=== PATIENT | female | born 1975 | race Hispanic/Latino ===

== ENCOUNTER 2018-03-10 11:32 | Emergency (ER) | payer OTHER ==
[~2018-03-10] VITALS: Ht 152.4 cm; Wt 79.8 kg
--- OUTSIDE RECORDS SUMMARY | 2018-03-10 11:35 | XMS REPORT | Summary of Care ---
Author Author [facility] Organization [facility] Address Unknown Phone Unavailable Encounter CHAPITO Baires(MARCO) [id number] Date(s): 09/13/15 - 09/13/15 [facility] [address] [place], [place] [id number] [place] [address] [phone] Discharge Disposition: Home Attending Physician: Garett Lyman MD Vital Signs No data available for this section Problem List Condition Effective Dates Status Health Status Informant Hyperglycemia, Active unspecified(Confirme d) Obesity(Confirmed) Active Allergies, Adverse Reactions, Alerts Substance Reaction Severity Status contrast media Active (iodine-based) NKDA Active traMADol contrast media (iodine-based) Active Medications No data available for this section Results No data available for this section Immunizations Vaccine Date Refusal Reason tetanus-diphtheria toxoids 11/12/09 Procedures Procedure Date Related Diagnosis Body Site Tubal ligation Social History Social History Type Response Alcohol Current, Type Beer, Liquor. Frequency: 1-2 times per month. Smoking Status Never smoker; Exposure to Tobacco Smoke None; Cigarette Smoking Last 365 Days No; Reg Smoking Cessation Counseling No1 1Patient stopped smoking about 3 months ago. Assessment and Plan No data available for this section
--- OUTSIDE RECORDS SUMMARY | 2018-03-10 11:35 | XMS REPORT | Continuity of Care Document ---
Author Author [facility] Interface Address Unknown Phone Unavailable Problems Problem Status Onset Date Classification Date Reported Comments Source N64.59 - OTHER SIGNS AND SYMPTOMS IN BR Active 09/20/2015 [facility] [place] Z12.31 - ENCNTR SCREEN MAMMOGRAM FOR [place] Active 07/19/2015 [facility] Hyperglycemia, unspecified Active Problem 09/16/2015 [facility] Obesity Active Problem 09/16/2015 [facility] Medications Medication Details Route Status Patient Instructions Ordering Provider Order Date Source Allergies, Adverse Reactions, Alerts Substance Category Reaction Severity Reaction type Status Date Reported Comments Source contrast media (iodine-based) Assertion Drug allergy Active [facility] traMADol Assertion contrast media (iodine-based) Drug allergy Active [facility] Immunizations Immunization Date Given Site Status Last Updated Comments Source tetanus-diphtheria toxoids 11/12/2009 Left deltoid completed Earl [facility] Results Order Name Results Value Reference Range Date Interpretation Comments Source Digital Mammo Screening [place] Digital Mammo Screening [place] - DIGITAL MAMMO SCREENING [place] BILATERAL [facility] DIGITAL SCREENING MAMMOGRAM WITH CAD: 09/13/2015 CLINICAL: Routine. Current study was evaluated with a Computer Aided Detection (CAD) system. No prior exams were available for comparison. The tissue of both breasts is heterogeneously dense, which could obscure detection of small masses. No significant masses, calcifications, or other findings are seen in either breast. IMPRESSION: NEGATIVE There is no mammographic evidence of malignancy. A 1 year screening mammogram is recommended. Mica amaro/penrad:09/14/2015 08:27:57 Electric Locomotive Firer/Fireman: Barbara MACHADO)([place]), [facility] This exam was dictated and interpreted by [id number] at [facility]. letter sent: Normal [place] Mammogram BI-RADS: 1 Negative 09/13/2015 - - Read by: Mica Howell MD Dictated Date/time: 09/14/15 08:27 Electronically Signed by: Mica Howell MD 09/14/15 08:27 FINAL REPORT OP[facility] Villalobosa Vital Signs Vital Sign Value Date Comments Source Encounters Location Location Details Encounter Type Encounter Number Reason For Visit Attending Provider ADM Date DC Date Status Source Outpatient [id number] JOEY PATEL 03/30/2015 Active [facility] Outpatient [id number] CHARITO PEREZ 07/19/2015 Active [facility] [place] [facility] [id number] Garett Lyman 09/13/2015 09/14/2015 [facility] Outpatient [id number] JOEY PATEL 11/22/2015 Active [facility] Outpatient [id number] JOEY PATEL 12/06/2015 Active [facility] Outpatient [id number] JOEY PATEL 04/10/2016 Active [facility] Outpatient [id number] JOEY PATEL 05/26/2016 Active [facility] Procedures Procedure Code Date Perfomer Comments Source Tubal ligation [id number] JAKY [place]
[2018-03-10 12:08] VITALS: BP 136/84
[2018-03-10] MEDS ORDERED: KETOROLAC TROMETHAMINE 60 MG/2 ML VIAL IM ONE (12:15)
== END 2018-03-10 12:21 | disposition home or self-care (01) ==
LOC: FSED 11:32
DX: M54.2 Cervicalgia (principal); S16.1XXA Strain of muscle, fascia and tendon at neck level, initial encounter; J02.9 Acute pharyngitis, unspecified; F17.210 Nicotine dependence, cigarettes, uncomplicated
CPT/HCPCS: 99282; J1885

== ENCOUNTER 2018-05-27 08:04 | Observation (INO) | payer OTHER ==
[2018-05-25 13:44] LABS: BASOPHILS % 0.2 % (0.0-1.0); EOSINOPHILS # (AUTO) 0.1 (0.0-0.4); EOSINOPHILS % 1.2 % (0.0-6.0); HEMATOCRIT 41.1 % (34.2-44.1); HEMOGLOBIN 13.8 g/dL (12.0-16.0); LYMPHOCYTES # (AUTO) 1.6 (1.0-3.2); LYMPHOCYTES % 28.6 % (18.0-39.1); MEAN CORPUSCULAR HEMOGLOBIN 33.4 pg (28-32); MEAN CORPUSCULAR HGB CONC 33.6 g/dL (31-35); MEAN CORPUSCULAR VOLUME 99.5 fL (81-99); MONOCYTES # (AUTO) 0.5 (0.2-0.8); NEUTROPHILS # (AUTO) 3.5 (2.1-6.9); NEUTROPHILS % 61.7 % (38.7-80.0); PLATELET COUNT 241 x10e3/uL (140-360); RED BLOOD COUNT 4.13 x10e6/uL (3.6-5.1); RED CELL DISTRIBUTION WIDTH 13.1 % (11.7-14.4)
[2018-05-25 13:55] LABS: INR 0.82; PROTHROMBIN TIME 12.1 seconds (11.9-14.5)
[2018-05-25 13:56] LABS: PARTIAL THROMBOPLASTIN TIME 28.8 seconds (23.8-35.5)
[2018-05-25 14:00] LABS: ANION GAP 13.7 mmol/L (8-16); BLOOD UREA NITROGEN 10 mg/dL (7-26); BUN/CREATININE RATIO 16 (6-25); CALCIUM 8.9 mg/dL (8.4-10.2); CARBON DIOXIDE 24 mmol/L (22-29); CHLORIDE 101 mmol/L (98-107); CREATININE, SERUM 0.63 mg/dL (0.57-1.11); EST GLOMERULAR FILTRATION RATE > 60 ML/MIN (60-); GLUCOSE 104 mg/dL (74-118); POTASSIUM 3.7 mmol/L (3.5-5.1); SODIUM 135 mmol/L (136-145)
--- NOTE | 2018-05-25 14:10 | Diagnostic Imaging Report ---
EXAMINATION: CHEST 2 VIEWS INDICATION: Pre-op COMPARISON: None FINDINGS: TUBES and LINES: None. LUNGS: Lungs are well inflated. Lungs are clear. There is no evidence of pneumonia or pulmonary edema. PLEURA: No pleural effusion or pneumothorax. HEART AND MEDIASTINUM: The cardiomediastinal silhouette is unremarkable. BONES AND SOFT TISSUES: No acute osseous lesion. Soft tissues are unremarkable. UPPER ABDOMEN: No free air under the diaphragm. IMPRESSION: No acute radiographic abnormality. Signed by: Dr. Tosha Lal MD on 05/25/2018 2:07 PM
--- NOTE | 2018-05-25 14:42 | NUR ---
CASE MANAGEMENT INITIAL ASSESSMENT Section Hand to bedside to discuss plan of care with patient/family. CM/SW role and care transitions discussed. Anticipated discharge plan discussed along with duration of care. CM discussed patients right to make decisions in care. CM/SW work hours given. Patient lives: PATIENT LIVES WITH IN [address] [place] [address] Admit/Transfer: OR POA/Emergency contact: - FRANCIA MONTGOMERY [phone] Current/Previous Home Health: NONE AT THIS TIME PCP/Follow-up Care: PATIENT DOES NOT HAVE ONE BUT HIGHLY ENCOURAGED TO FIND ONE WHILE HERE AND SET UP APPOINTMENT PRIOR TO DISCHARGE. Current/Previous DME: NONE Other Services: NONE Employment Status: EMPLOYED Areas of Concerns: NONE AT THIS TIME Referral Needs: NONE Education Needs: NOT AT THIS TIME IMM/DORANTES given and signed (if applicable): IMM Goal for discharge: DISCHARGE TO [facility] CM left business card at the bedside with contact information. Name and number was also written on the patients whiteboard. Patient verbalized understanding of discussion. CM will follow-up with ongoing discharge and transition of care needs.
[~2018-05-27] VITALS: Ht 152.4 cm; Wt 87.3 kg
[~2018-05-27 08:04] MED LIST: ACETAMINOPHEN 1000 MG/100 ML 100 ML IV ONE; CYCLOBENZAPRINE10 MG PO; LIDOCAINE HCL (LTA) 4 ML SOLN ONE; NORCO 5-325 TA1 EACH PO; PIROXICAM10 MG PO
--- OUTSIDE RECORDS SUMMARY | 2018-05-27 08:07 | XMS REPORT ---
Author [facility] Address Unknown Phone Unavailable Care Team Providers Care Education Program Specialist Name Role Phone DINESH ODOM Unavailable Unavailable Problems This patient has no known problems. Allergies, Adverse Reactions, Alerts This patient has no known allergies or adverse reactions. Medications This patient has no known medications. Results Test Description Test Time Test Comments Text Results Atomic Results Result Comments CHEST 2 VIEWS 2018-05-25 14:06:00 [place] [address] Patient Name: FRANKI ESPINAL MR #: [id number] : 1975 Age/Sex: 42/F Req #: [id number] Adm Physician: Ordered by: DINESH ODOM MD Report #: [id number] Location: OR Room/Bed: Procedure: [id number] DX/CHEST 2 VIEWS Exam Date: 05/25/18 Exam Time: 1250 REPORT STATUS: Signed EXAMINATION: CHEST 2 VIEWS INDICATION: Pre-op COMPARISON: None FINDINGS: TUBES and LINES: None. LUNGS: Lungs are well inflated. Lungs are clear. There is no evidence of pneumonia or pulmonary edema. PLEURA: No pleural effusion or pneumothorax. HEART AND MEDIASTINUM: The cardiomediastinal silhouette is unremarkable. BONES AND SOFT TISSUES: No acute osseous lesion. Soft tissues are unrem arkable. UPPER ABDOMEN: No free air under the diaphragm. IMPRESSION: No acute radiographic abnormality. Signed by: Dr. Kathy Paulson MD on 05/25/2018 2:07 PM Dictated By: KATHY PAULSON MD 06 Transcribed By: ELISABETH on 05/25/181406 COPY TO: DINESH ODOM MD
[2018-05-27] MEDS ORDERED: GELATIN SPONGE 12-7MM ONE (08:18)
[2018-05-27] MEDS ORDERED: BUPIVACAINE 0.5%/EPI 30 ML SDV INJ ONE (08:18)
[2018-05-27] MEDS ORDERED: THROMBIN FOR SOLN 5,000 UNIT VIAL ONE (08:18)
[2018-05-27] MEDS ORDERED: BACITRACIN 50,000 UNIT VIAL ONE (08:19)
[2018-05-27] MEDS ORDERED: CEFAZOLIN SOD 2 GM/D5W 50ML 50 ML IV ONE (08:36)
[2018-05-27] MEDS ORDERED: BUPIVACAINE HCL 0.5% 10ML MPF VIAL INJ ONE (10:41)
[2018-05-27] MEDS ORDERED: PROMETHAZINE HCL (IM) 25 MG/ML VIAL IM PRN (11:30)
[2018-05-27] MEDS ORDERED: ONDANSETRON HCL INJ 2MG/ML 2ML 2 MG/ML VIAL IV PRN (11:30)
[2018-05-27] MEDS ORDERED: ACETAMINOPHEN 325 MG TAB PO PRN (11:30)
[2018-05-27] MEDS ORDERED: MORPHINE SULFATE 5 MG/ML VIAL IM PRN (11:30)
[2018-05-27] MEDS ORDERED: MAGNESIUM/ALUMINUM/SIMETHICONE 30 ML UDC PO PRN (11:30)
[2018-05-27] MEDS ORDERED: CARISOPRODOL 350 MG TAB PO PRN (11:30)
[2018-05-27] MEDS ORDERED: FENTANYL CITRATE/PF 100MCG/2 ML INJ ONE ×2 (11:41→19:23)
[2018-05-27] MEDS ORDERED: KETOROLAC TROMETHAMINE 30 MG/ML VIAL ONE (12:03)
[2018-05-27] MEDS ORDERED: HYDROMORPHONE 2MG/ML 2 MG/ML ML ONE (12:15)
--- NOTE | 2018-05-27 13:31 | Operative Report ---
DATE OF PROCEDURE: May 27, 2018 PREOPERATIVE DIAGNOSES: 1. 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 2. Right carpal tunnel syndrome. POSTOPERATIVE DIAGNOSES: 1. 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 1. Right carpal tunnel syndrome. PROCEDURES: 1. C5-6 anterior cervical diskectomy and microsurgical osteophyte resection and allograft fusion, 03784. 2. Preparation of [employer] cortical cancellous allograft, 57096. 3. C5-6 anterior cervical plating with Synthes Zero-Profile Natural plate, 87119. 4. Right carpal tunnel release. ANESTHESIA: General. INDICATIONS: The patient is a 42-year-old woman who presents with a right C6 radiculopathy superimposed on right carpal tunnel syndrome and was taken to the operating room for simultaneous anterior cervical decompression and fusion and right carpal tunnel release. PROCEDURE: After the induction of general anesthesia, the patient was placed on the operating table in supine position and the fluoroscopic C-arm was positioned in cross-table lateral orientation. The right side of the neck was prepped and draped in sterile fashion. A small transverse incision was created overlying a skin crease superimposed on the C5-6 disk space as determined with bilateral fluoroscopy. The platysma was divided in line with the incision. A subplatysmal dissection was carried out. An avascular plane of dissection was developed medial to the sternocleidomastoid muscle and was followed medial to the carotid sheath to the anterior border of the cervical spine. The deep cervical fascia was opened. The esophagus was retracted to left. The attachments of longus coli muscles to the anterior lateral aspects of vertebral bodies of C5 and C6 were divided. The anterior longitudinal ligament was resected. [place] posts were inserted into C5 and C6, and the [place] distractor was used to distract the disk space. The anterior annulus of the disk was incised with a number 11 blade, and the contents of the disks were thoroughly evacuated with angled curets and pituitary rongeurs. The posterior osteophytes were drilled with a 2 mm cutting bur on a high-speed drill until they were completely removed. The posterior annulus of the disks, herniated disk material, and the posterior longitudinal ligament were resected layer by layer until the dura was fully exposed and decompressed. The medial aspects of the uncinate processes were resected bilaterally to further expose and decompress the origins of the corresponding nerve roots. After satisfactory decompression had been achieved, the endplates were prepared for fusion. The disk space was sized and found to be 8 mm in height. A piece of MTF cortical cancellous allograft measuring 8 mm in thickness was selected and loaded onto a Synthes ZPN plate. The construct was inserted into the C5-6 disk space under distraction and fluoroscopic guidance. The distraction was released, and the distraction posts were removed. The plate was then screwed to the endplates of C5 and C6 with 2 pairs of 14 mm screws. All screws were locked, and excellent construct was obtained. The wound was copiously irrigated with Bacitracin solution. Meticulous hemostasis was secured. The retractor was removed. The platysma was closed with 3-0 Vicryl sutures. The skin was closed with 4-0 Monocryl sutures in subcuticular fashion. Steri-Strips and a dressing were applied. The drapes were removed. The right arm was abducted over a hand table. The right hand, wrist and forearm were prepped and draped circumferentially in sterile fashion. A tourniquet was inflated over the upper arm to 250 mmHg. A small midline incision was created over the median palmar crease of the hand just distal to the distal flexor crease of the wrist. The subcutaneous fat was divided, and transverse carpal ligament was identified and incised with a number 15C blade until the underlying median nerve came into view. As the instructional assistant retracted the skin edges, the transverse carpal ligament was divided proximally and distally until the full length of the ligament had been divided and the full length of median nerve was exposed and decompressed within the carpal tunnel. The point of maximum compression on the nerve appeared to be 2.5 cm distal to the distal flexor crease of the wrist where the ligament was at its thickest. More distally, the recurrent motor branch of the nerve was preserved within its fat pad. The wound was copiously irrigated with Bacitracin solution. The subcutaneous layer was closed with a 3-0 Vicryl suture. The skin was closed with a 3-0 nylon suture in a horizontal mattress fashion. A dressing was applied, and the hand was wrapped after the tourniquet had been deflated. The patient was awakened and extubated and taken to the postanesthesia care unit in stable condition. No intraoperative complications were encountered. Estimated blood loss was 20 mL. Job#: [id number]
--- NOTE | 2018-05-27 14:00 | NUR ---
RECEIVED TO RM AAOX3 NO DISTRESS NOTED UPDATED ON POC VOICED UNDERSTANDING, DENIES PAIN AT THIS TIME ,DSG TO ANTERIOR NECK C/D/I, C COLLAR IN PLACE, RIGHT HAND DSG INTACT, ABLE TO MOVE FINGERS, DENIES PAIN AT THIS TIME CALL LIGHT IN REACH WILL CONTINUE TO MONITOR
[2018-05-27 14:07] VITALS: BP 136/72
[2018-05-27] MEDS: OXYCODONE/ACETAMINOPHEN 5-325 1 EACH TABLET PO PRN (15:20)
[2018-05-27 15:46] VITALS: BP 125/69
[2018-05-27] MEDS: LACTATED RINGER'S 1,000 ML IV SCH ×2 (16:04→19:45)
[2018-05-27] MEDS: CEFAZOLIN SOD 1 GM/D5W 50ML 50 ML IV SCH (17:30)
--- NOTE | 2018-05-27 19:15 | NUR ---
Received patient awake, walking down the sawyer with the , cervical collar in place, patient is not in distress, no complaints made at this time, dressing to the anterior neck and right hand noted. Advised to call for assistance when needed, will continue to monitor
[2018-05-27] MEDS ORDERED: DEXAMETHASONE SOD PHOS INJ 4 MG/ML VIAL ONE (19:23)
[2018-05-27] MEDS ORDERED: PROPOFOL IV EMULSION 10 MG/ML 20 ML VIAL ONE (19:23)
[2018-05-27] MEDS ORDERED: NEOSTIGMINE 5 MG/5ML SYR ONE (19:23)
[2018-05-27] MEDS ORDERED: LIDOCAINE HCL 2% JELLY 5 ML TUBE ONE (19:23)
[2018-05-27] MEDS ORDERED: ROCURONIUM BROMIDE 10 MG/ML 5ML VIAL ONE (19:23)
[2018-05-27] MEDS ORDERED: ONDANSETRON HCL INJ 2MG/ML 2ML 2 MG/ML VIAL ONE (19:23)
[2018-05-27] MEDS ORDERED: MIDAZOLAM HCL 2 MG/2 ML VIAL ONE (19:23)
[2018-05-27] MEDS ORDERED: GLYCOPYRROLATE INJ 1MG/ 5 ML SYR ONE (19:23)
[2018-05-27] MEDS ORDERED: LIDOCAINE HCL 2% LOCAL INJ 5 ML SDV VIAL INJ ONE (19:23)
[2018-05-27] MEDS ORDERED: SEVOFLURANE INHAL SOLN 250 ML PEN BTL ONE (19:23)
[2018-05-27] MEDS: HYDROMORPHONE 2MG/ML 2 MG/ML ML IV PRN (19:51)
[2018-05-27 20:00] VITALS: BP 118/72
[2018-05-27] MEDS ORDERED: MORPHINE SULFATE INJ 10 MG/ML IM PRN (20:15)
[2018-05-27 21:00] VITALS: BP 118/72
[2018-05-27] MEDS ORDERED: ZOLPIDEM TARTRATE 5 MG TAB PO PRN (21:00)
[2018-05-28] VITALS: BP 127/79
[2018-05-28] MEDS: CEFAZOLIN SOD 1 GM/D5W 50ML 50 ML IV SCH ×2 (01:07→08:40)
[2018-05-28] MEDS: LACTATED RINGER'S 1,000 ML IV SCH (01:35)
[2018-05-28] MEDS: HYDROMORPHONE 2MG/ML 2 MG/ML ML IV PRN ×2 (01:43→08:40)
[2018-05-28 04:00] VITALS: BP 122/70
--- NOTE | 2018-05-28 07:02 | Diagnostic Imaging Report ---
Cervical Spine, 2 views HISTORY: Postop. COMPARISON: None. FINDINGS: Limited sensitivity for detection of subtle fractures and ligamentous abnormalities. On the lateral view, the cervical spine is visualized from the skull base to C6. Straightening of the cervical lordosis. No acute displaced fracture involving the visualized cervical spine. Status post C5-C6 anterior cervical discectomy and fusion without radiographic complication. Prevertebral soft tissue swelling and subcutaneous emphysema. IMPRESSION: Postoperative changes related to C5-C6 anterior cervical discectomy and fusion. Signed by: DR. Abdulaziz Grossman MD on 05/28/2018 6:59 AM
[2018-05-28] MEDS: OXYCODONE/ACETAMINOPHEN 5-325 1 EACH TABLET PO PRN (07:12)
[2018-05-28 07:58] VITALS: BP 119/74
--- NOTE | 2018-05-28 08:11 | NUR ---
Patient alert and responsive, VSS, s/p cervical disectomy and cervical collar in place, pains well managed, on Dilaudid and APAP # 3, will monitor and prophylactic antibiotics will be given this morning as last dose and then discharge per orders. Education will be provided regarding cervical precautions.
[2018-05-28 10:50] VITALS: BP 119/74
[2018-05-28] MEDS ORDERED: NORCO 7.5-3251 EACH PO (11:23)
--- NOTE | 2018-05-28 12:20 | NUR ---
Patient provided with discharge documentation and instructions, prescription for pain meds, dressing to cervical incision removed and no drainage noted and incision intact with steri strips, cervical collar re-applied, tolerated well. IV line removed with cath tip in place and dressing applied. Contacts provided for f/u appointment. Patient discharged.
[2018-05-28 12:43] VITALS: BP 133/63
== END 2018-05-28 12:22 | disposition home or self-care (01) ==
LOC: OR 08:04 → PACU V 11:29 → MED/SURG 13:49
PROVIDERS: ADMIT Neurological Surgery; ATTEND Neurological Surgery
DX: M50.122 Cervical disc disorder at C5-C6 level with radiculopathy (principal); G56.01 Carpal tunnel syndrome, right upper limb; Z88.5 Allergy status to narcotic agent; Z91.048 Other nonmedicinal substance allergy status; G47.33 Obstructive sleep apnea (adult) (pediatric); F17.210 Nicotine dependence, cigarettes, uncomplicated; Z01.810 Encounter for preprocedural cardiovascular examination; Z01.812 Encounter for preprocedural laboratory examination; Z01.811 Encounter for preprocedural respiratory examination
CPT/HCPCS: 20931; 22551; 22845; 36415; 64721; 71046; 72040; 77003; 80048; 81025; 85025; 85610; 85730; 86850; 86900; 88304; 93005; C1713 ×2; C9359; G0378 ×2; J0131; J0690 ×3; J1100; J1170 ×2; J1885; J2001 ×2; J2250; J2405 ×2; J2704; J3490; J7120 ×2; J2270; J7121